=== PATIENT | female | born 1970 | race Caucasian/White ===

== ENCOUNTER 2023-06-08 16:29 | Emergency (ER) | payer OTHER, SELFPAY ==
[2023-06-08 16:32] VITALS: BP 111/78; PULSE 78; RESP 18; TEMP 36.6; O2SAT 98
--- NOTE | 2023-06-08 16:55 | ED.GENADUL1 ---
HPI - General Adult General Chief complaint: Back Pain/Injury Stated complaint: BACK PAIN Time Seen by Provider: 06/08/23 16:36 Source: patient Mode of arrival: Wheelchair Limitations: no limitations History of Present Illness HPI narrative: patient is a 53-year-old female presents to the Emergency Room with concerns of left lower back/left hip pain. Patient states she has had symptoms in the past, recent flareup for several weeks. She was seen by her family doctor prescribed Ultram but does not like the way it makes her feel. Patient is on blood thinner eliquis for atrial fibrillation and is diabetic. pain is 9/10 with standing in the left low back/buttock region, nonradiating. She denies any numbness or tingling. She reports chronic paresthesias in the feet from her diabetes but no new symptoms. She denies any bowel or bladder incontinence or saddle paresthesias. Patient was seen at the [facility] Emergency Room and was given lidocaine patches which did help, but recently ran out. Patient does see pain management at [facility] but does not recall the name of her physician. She denies any abdominal pain, dysuria, chest pain or shortness of breath. Patient denies any fever, chills. She denies any recent fall trauma or injury. Radiation: Reports back (left lower back/buttock region.) Related Data Previous Rx's Medication Instructions Recorded lidocaine 4 % topical patch 1 patch topical DAILY PRN pain 10 06/08/23 (Lidocaine Pain Relief) days #10 ea Allergies Allergy/AdvReac Type Severity Reaction Status Date / Time codeine Allergy Intermediate Verified 06/08/23 16:35 Sulfa (Sulfonamide Allergy Intermediate Verified 06/08/23 16:35 Antibiotics) Review of Systems ROS Constitutional Denies: fever or chills Eyes Denies: change in vision or blurry vision Ears, nose, mouth, and throat Denies: throat pain, neck pain or throat swelling Cardiovascular Denies: chest pain, palpitations or edema Respiratory Denies: shortness of breath, cough or wheezing Gastrointestinal Denies: abdominal pain, nausea or vomiting Musculoskeletal Reports: back pain; Denies: neck pain or extremity pain Integumentary/Breast Denies: rash, itching, redness, skin pain, skin tenderness, skin swelling or sores Neurological Denies: headache, numbness in extremities or weakness in extremities Psychiatric Denies: anxiety or mood swings Hematologic/Lymphatic Denies: easy bruising Exam Narrative Exam Narrative: Vital Signs reviewed and nurse's notes reviewed. The patient is not hypoxic. General: Alert, no acute distress, patient resting comfortably Skin: warm, intact, no pallor noted, no rash Head: Normocephalic, atraumatic Eye: Normal conjunctiva, EOMI Respiratory: No acute distress Abdomen: Normal bowel sounds, soft, nontender, no masses detected. No rebound, guarding, or rigidity noted. No midline pulsatile mass. Back: inspection of the back shows no obvious deformity, no swelling, no ecchymosis, contusion, abrasion, swelling, erythema, fluctuance or induration. No step offs or crepitus noted. No CVA tenderness noted bilaterally. Tenderness noted to left SI joint and left buttock to the lateral/posterior insertion of the greater to, there is no tenderness to the lateral aspect of the hip joint or greater trochanter. No palpable mass in the groin. . Straight leg raise on left is negative. notable hamstring tightness bilaterally. Negative FADIR, + FABERS, mild pain with Gaenslens test. Straight leg raise on right is negative. Musculoskeletal: No deformity noted to bilateral lower extremities. no cyanosis or mottling noted. normal pulses at DP and PT 2+ bilaterally and symmetrically. Normal 5/5 strength at ankles with dorsiflexion and plantar flexion. Patient is able to ambulate. Normal sensation noted to the bilateral lower extremities.no pain with log rolling of left hip or right hip. Neurological: alert and oriented x4, normal sensory and motor observed. DTR 2+ at patellar and achilles bilaterally. Psychiatric: Cooperative Constitutional Vital Signs, click to edit/add: Last Vital Signs Temp 97.9 F 06/08/23 16:32 Pulse 78 06/08/23 16:32 Resp 18 06/08/23 16:32 BP 111/78 06/08/23 16:32 Pulse Ox 98 06/08/23 16:32 O2 Del Method Room Air 06/08/23 16:32 Course Vital Signs Vital signs: Vital Signs Temperature 97.9 F 06/08/23 16:32 Pulse Rate 78 06/08/23 16:32 Respiratory Rate 18 06/08/23 16:32 Blood Pressure 111/78 08/13/23 16:32 Pulse Oximetry 98 06/08/23 16:32 Oxygen Delivery Method Room Air 06/08/23 16:32 Temperature 97.9 F 06/08/23 16:32 Pulse Rate 78 06/08/23 16:32 Respiratory Rate 18 06/08/23 16:32 Blood Pressure 111/78 06/08/23 16:32 Pulse Oximetry 98 06/08/23 16:32 Oxygen Delivery Method Room Air 06/08/23 16:32 Medical Decision Making [facility] Narrative Medical decision making narrative: patient presents with acute on chronic symptoms. Admits she has trouble traveling to physical therapy in [place] as she lives in [place]. She does see her PCP and pain management physician in the [place] region. We discussed the importance of therapy and she is given a home exercise plan for her former syndrome with stretches demonstrated at the bedside. Patient has benign exam. We discussed medication at length, patient reports her blood sugars have been doing well and she declines the thought of an oral steroid. Patient is also on a blood thinner and cannot take anti-inflammatories. Patient states she has noticed the most relief from topical lidocaine patches and prescriptive and [id number] products were discussed, patient aware that sometimes insurance does not cover lidocaine patch and she may try [id number] Roll- on formulas. Patient agreeable to treatment plan, and follow-up to be management physician to discuss potential procedures or injections that may offer more relief. The patient was noted to be grossly neurologically intact. The patient declined the need for medications today in the emergency department. The patient vital signs were reviewed in the patient had no neurologic deficit noted. Due to the nature of the patient's history of present illness and the benign physical exam we do not feel that x-rays were clinically warranted. The patient is to followup in the next 3-5 days for repeat evaluation or to return to the emergency department if symptoms worsen or new symptoms develop. The patient will be discharged home with adequate analgesia as requested and a topical form.. The patient has no other questions or concerns at this time. Discharge Plan Discharge Chief Complaint: Back Pain/Injury Clinical Impression: Piriformis syndrome of left side, Acute pain of left hip, Acute left-sided low back pain Patient Disposition: Home, Self-Care Time of Disposition Decision: 16:56 Condition: Good Mode of Transportation: Private Vehicle Prescriptions / Home Meds: New lidocaine [Lidocaine Pain Relief] 4 % adhesive patch,medicated 1 patch topical DAILY PRN (Reason: pain) 10 Days Qty: 10 1RF Rx Instructions: may leave on for up to 12 hrs Instructions: Piriformis Syndrome (ED) Additional Instructions: contact your pain management physician to discuss potential procedures if not improving with physical therapy. Stand Alone Forms: Portal Instructions Referrals: JACOBO GROSSMAN [Primary Care Provider] - As soon as possible
== END 2023-06-08 17:05 | disposition home or self-care (01) ==
PROVIDERS: Emergency Provider Emergency Medicine; PCP Family Medicine
DX: M25.552 Pain in left hip (principal); M54.50 Low back pain, unspecified; G57.02 Lesion of sciatic nerve, left lower limb
CPT/HCPCS: 99283

== ENCOUNTER 2023-06-17 14:36 | Outpatient (RCR) | payer OTHER, SELFPAY | END 2023-06-27 16:15 | disposition home or self-care (01) | LOC: PT 14:36 | PROVIDERS: PCP Family Medicine; Visit Provider Family Medicine | DX: M54.89 Other dorsalgia (principal); M54.30 Sciatica, unspecified side | CPT/HCPCS: 97035; 97110; 97140; 97161 ==